=== PATIENT | female | born 1985 | race Caucasian/White ===

== ENCOUNTER 2019-03-30 16:12 | Outpatient (REF) | payer MEDICAID, SELFPAY ==
[2019-03-30 19:35] LABS: ALT 14 U/L (14-59); AST 17 U/L (15-37); Albumin 3.9 g/dL (3.4-5.0); Alkaline Phosphatase 63 U/L (46-116); Amylase 51 U/L (25-115); Anion Gap 10.3 mmol/L (3-11); BUN 15 mg/dL (7-18); Bilirubin, Total 0.5 mg/dL (0.2-1.0); CO2 24.7 mmol/L (21.0-32.0); CREATININE 0.79 mg/dL (0.55-1.02); Calcium 8.8 mg/dL (8.5-10.1); Chloride 105 mmol/L (98-107); Glucose 95 mg/dL (70-100); Lipase 115 U/L (73-393); Potassium 4.1 mmol/L (3.5-5.1); Sodium 140 mmol/L (136-145); Total Protein 7.1 g/dL (6.4-8.2)
== END 2019-03-30 16:32 ==
LOC: NCHCN 16:12
PROVIDERS: PCP Nurse Practitioner Family; Visit Provider Nurse Practitioner Family
DX: R10.11 Right upper quadrant pain (principal)
CPT/HCPCS: 80053; 83690; 82150

== ENCOUNTER 2019-07-20 20:02 | Outpatient (REF) | payer MEDICAID, SELFPAY ==
[2019-07-20 19:51] LABS: HCG Qual (Serum) Negative
== END 2019-07-20 20:22 ==
LOC: NCHCN 20:02
PROVIDERS: PCP Nurse Practitioner Family; Visit Provider Nurse Practitioner Family
DX: N91.2 Amenorrhea, unspecified (principal)
CPT/HCPCS: 84703

== ENCOUNTER 2019-11-22 17:11 | Outpatient (REF) | payer MEDICAID, SELFPAY ==
--- NOTE | 2019-11-22 16:20 | PAPFT_PTH ---
PATIENT: Joleen Spencer LOC: [facility]#:[id number] AGE/SX: 34/F ROOM: RE11/22/[address]: Lexii Coleman : 1985 BED: DIS: 11/22/2019 SPEC #: [id number] RECD: 11/23/19 12:56 STATUS: STEPH REHeidy #: [id number] KVNG: 11/22/19 16:[address]: Lexii Coleman [facility]PT[facility] Cytology RECD BY: Helen Saavedra ENTERED: 11/23/19 12:56 SP TYPE: PAPFT OTHR DR: Ernestina Montez Tissues: 1 - CX/ENDOCX FOR PAP SMEARS Procedures: PAP THIN PREP/UVM Screening HPV DNA PROBE Comments: [id number]
== END 2019-11-22 17:31 ==
LOC: NCHCN 17:11
PROVIDERS: PCP Nurse Practitioner Family; Visit Provider Nurse Practitioner Family
DX: Z12.4 Encounter for screening for malignant neoplasm of cervix (principal); Z11.51 Encounter for screening for human papillomavirus (HPV)
CPT/HCPCS: 88142; 87624

== ENCOUNTER 2020-10-28 14:55 | Outpatient (REF) | payer MEDICAID, SELFPAY ==
--- OUTSIDE RECORDS SUMMARY | 2020-10-28 15:05 | XMS_ITS ---
:1985 Author Care Team Providers Name Role Phone STEF RHODES MD Primary Care Provider [phone] Allergies Code Code System Name Reaction Severity Status Onset NKDA ? Medications Name Status Start Date Stop Date ? ? amoxicillin 500 mg capsule Active ? Not a vailable Take 1 capsule every 8 hours by oral route for 10 days. ferrous sulfate 325 mg (65 mg iron) tablet,delayed release Compl eted 12/05/2012 02/03/[address]: TID fluticasone propionate 50 Active ? Not av ailable mcg/actuation nasal spray,suspension methylprednisolone 4 mg tablets in Active ? Not available a dose pack oxycodone 5 mg tablet Completed 08/15/2015 07/17/2016 1 (one) Tablet: every 4 hours as needed Percocet 5 mg-325 mg tablet Completed 07/22/2016 05/0 05/2016 1 (one) - 2 (two) Tablet Tablet: every 6 hours as needed for pa in Pulmicort 0.5 mg/2 mL suspension Active ? Not available for nebulization Vitamin B-12 500 mcg tablet Completed 07/30/2010 06/0 11/2010 1 (one) Tablet: daily Notes: Pt is not on any medicati ons 05/25/2019 Problems Name Status Onset Date Source ? Insomnia Active ? History Umbilical Hernia Active ? History Pain in Limb Active ? History Gynecologic Examination Active ? History Pain of Right Shoulder Joint Active ? His tory Procedure by Method Active ? History Procedures Date Name Performed by ? ? Orthopedic Surgery Information not avai lable Notes: Sugeries to right elbow x5 (from [id number]) Right shoulder surgery 11/22/2009 Results Lab Results Date Name Specimen Result Interpretation Description Value Range Status Address ? 04/19/2018 CBC W/ Auto BLD Low Wbc 3.6 10*3/uL 5.0-10.0 F inal [place] Diff 10*3/uL [facility] ab (Internal) : [address], [place] [address] ? ? BLD Low Rbc 3.79 4.10-5.30 Final [place] 10*6/uL 10*6/uL [facility] (Internal) : [address] ? ? BLD - Hgb 13.2 g/dL 12.0-16.0 Final Nort h g/dL [facility] (Internal) : [address] ? ? BLD - Hct 38.7 % 37.0-47.0 Final North % [facility] (Internal) : [address] ? ? BLD High Mcv 102.1 fL 80.0-96.0 Final [place] fL [facility] (Internal) : [address] ? ? BLD High Mch 34.8 pg 26.0-32.0 Final [place] pg [facility] (Internal) : [address] ? ? BLD - Mchc 34.1 g/dL 31.0-35.0 Final Nort h g/dL [facility] (Internal) : [address] ? ? BLD - Rdw 11.7 % 11.5-14.5 Final North % [facility] (Internal) : [address] ? ? BLD - Plt 223 10*3/uL 130-450 Final Nort h 10*3/uL [facility] (Internal) : [address] 04/19/2018 CMP, Serum S High g/r 111 mg/dL 74-106 Final North or Plasma mg/dL [facility] (Internal) : [address] ? ? S - Bun 7 mg/dL 7-17 Final North mg/dL [facility] (Internal) : [address] ? ? S - Crea 0.70 mg/dL 0.52-1.04 Final Nor th mg/dL [facility] (Internal) : [address] ? ? S - Ca 8.9 mg/dL 8.4-10.2 Final North mg/dL [facility] (Internal) : [address] ? ? S - Na 139 mmol/L 137-145 Final [place] mmol/L [facility] (Internal) : [address] ? ? S - K 3.8 mmol/L 3.5-5.1 Final [place] mmol/L [facility] (Internal) : [address] ? ? S - Cl 104 mmol/L 98-107 Final [place] mmol/L [facility] (Internal) : [address] ? ? S - Tco2 23.0 mmol/L 22.0-30.0 Final No rth mmol/L [facility] (Internal) : [address] ? ? S - Tp 7.0 g/dL 6.3-8.2 Final [place] g/dL [facility] (Internal) : [address] ? ? S - Alb 4.1 g/dL 3.5-5.0 Final [place] g/dL [facility] (Internal) : [address] ? ? S - Tbil 0.7 mg/dL 0.2-1.3 Final [place] mg/dL [facility] (Internal) : [address] ? ? S - Alp 72 U/L 50-136 Final North U/L [facility] ab (Internal) : [address] [place] ? ? S - Alt (Sgpt) 13 U/L 9-52 U/L Final [facility] ab (Internal) : [address] ? ? S High Ast (Sgot) 39 U/L 14-36 U/L Final No rth [facility] (Internal) : [address] [place] 04/19/2018 Differentia BLD - Polys 61 % 40-75 % Final [facility], Manual, Countr y Blood Hospital L ab (Internal) : [address] ? ? BLD - Bands 0 % 0-5 % Final [facility] ab (Internal) : [address] ? ? BLD - Lymphs 25 % 20-50 % Final [facility] ab (Internal) : [address] ? ? BLD High [place] 12 % 2-10 % Final [facility] ab (Internal) : [address] ? ? BLD - Eos 0 % 0-6 % Final [facility] (Internal) : [address] ? ? BLD High Baso 2 % 0-1 % Final [facility] ab (Internal) : [address] ? ? BLD - Atyp Lymph 0 % ? Final [facility] ab (Internal) : [address] ? ? BLD - Plts, Est. adequate adequate Final N [facility] ab (Internal) : [address] ? ? BLD ABNORMAL RBC abnormal normal Final [facility] ab (Internal) : [address] ? ? BLD - Macro occasional ? Final [facility] ab (Internal) : [address] 04/19/2018 Neutrophil BLD - Anc-manual 2.17 ? [facility] Count, 10*3/uL [facility] Lab (Anc), (Internal) : Blood [address] 04/19/2018 Troponin I, S - Trop <0.06 NG/mL 0.00-0.06 [facility] Serum or NG/mL [facility] Plasma [facility] L ab (Internal) : [address] Past Encounters 12/28/2019 Giovanny Jewell MD: [address] [place] [address], [address], [place] [address], Ph. Social History Tobacco Smoking Status Heavy Tobacco Smoker (1 PPD) Vaccine List Vaccine Type DTaP Hep B, adolescent or pediatric influenza, injectable, quadrivalent 04/02/2020?0.5 mL influenza, seasonal, injectable, preserv ative free 03/24/2010?0.5 mL 02/10/2012?0.5 mL IPV MMR Td (adult), adsorbed 10/29/1997 Tdap 10/10/2010?0.5 mL Plan of Care Reminders Provider Appointments None ? ? recorded. Lab None ? ? recorded. Referral None ? ? recorded. Procedures None ? ? recorded. Surgeries None ? ? recorded. Imaging None ? ? recorded. Vitals 12/28/2019 02:15PM Consult 30 Height Weight BMI Blood Pressure 160.02 cm 58.06 kg 22.7 kg/m2 132/82 mm[Hg] 09/21/2016 Height Weight Blood Pressure 161.93 cm 60.6 kg 112/76 mm[Hg] 08/03/2016 Weight 59.87 kg 07/16/2016 Weight 59.87 kg 11/01/2015 Height Weight Blood Pressure 160.02 cm 56.7 kg 120/60 mm[Hg] 09/24/2015 Height Weight Blood Pressure 160.02 cm 56.7 kg 110/60 mm[Hg] 06/14/2015 Height Weight Blood Pressure 160.02 cm 56.7 kg 110/70 mm[Hg] 04/26/2015 Height Weight Blood Pressure 160.02 cm 56.7 kg 118/72 mm[Hg] 10/11/2014 Height Weight Blood Pressure 161.29 cm 53.98 kg 102/60 mm[Hg] 06/07/2014 Height Weight Blood Pressure 161.29 cm 55.79 kg 100/64 mm[Hg] 10/03/2013 Height Weight Blood Pressure 161.29 cm 56.15 kg 120/70 mm[Hg] 09/27/2012 Height Weight Blood Pressure 160.66 cm 61.37 kg 110/74 mm[Hg] 01/05/2012 Height Weight Blood Pressure 160.66 cm 49.85 kg 124/72 mm[Hg] 12/01/2011 Height Weight Blood Pressure 160.66 cm 50.26 kg 104/74 mm[Hg] 11/21/2010 Height Weight Blood Pressure 160.02 cm 61.01 kg 116/76 mm[Hg] 02/05/2010 Height Weight Blood Pressure 160.02 cm 52.16 kg 96/56 mm[Hg]
[2020-10-28 18:44] LABS: TSH (W/Ref FT4) 1.29 uIU/mL (0.36-3.74)
== END 2020-10-28 14:56 | disposition home or self-care (01) ==
LOC: NCHCN 14:55
PROVIDERS: PCP Nurse Practitioner Family; Visit Provider Nurse Practitioner Family
DX: R00.2 Palpitations (principal)
CPT/HCPCS: 84443

== ENCOUNTER 2021-04-03 18:02 | Emergency (ER) | payer MEDICAID, SELFPAY ==
[2021-04-03 18:41] VITALS: BP 140/87; PULSE 80; RESP 18; O2SAT 98
--- NOTE | 2021-04-03 19:15 | DI.RAD_ITS ---
Exam(s) XR HAND LT COMPLETE EXAM: XR HAND LT COMPLETE CLINICAL HISTORY: dog bite L hand, r/o foreign body, osteo TECHNIQUE: COMPARISON: No exams were available for comparison FINDINGS: Three views were obtained. There is no evidence of acute fracture or dislocation. IMPRESSION: RADIATION DOSE DELIVERED: Total DLP
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
[2021-04-03] MEDS: Sulfameth/Trimeth DS TAB 1 TAB PO (19:23)
[2021-04-03 19:35] LABS: Abs Immature Grans 0.02 10^3/uL (0.0-0.06); Absolute Basophil Count 0.04 10^3/uL (0.0-0.2); Absolute Eosinophil Count 0.16 10^3/uL (0.0-0.7); Absolute Lymphocyte Count 2.15 10^3/uL (1.2-3.4); Absolute Monocyte Count 0.63 10^3/uL (0.1-0.8); Absolute Neutrophil Count 4.21 10^3/uL (1.2-6.7); Basophils % 0.6; Eosinophils % 2.2; HCT 37.7 % (36.0-46.0); HGB 12.7 g/dL (11.2-15.7); Immature Grans % 0.3; Lymphocytes % 29.8; MCH 35.1 pg (27.0-33.0); MCHC 33.7 % (32.0-36.0); MCV 104.1 fL (80-95); MPV 10.3 fL (8.0-11.0); Monocytes % 8.7; Neutrophils % 58.4; Nucleated RBC 0 %; Platelet Count 297 10^3/uL (130-400); RBC 3.62 10^6/uL (3.93-5.22); RDW 11.2 % (11.7-14.6); RDW-SD 43.5 fL; WBC 7.21 10^3/uL (4.4-10.8)
[2021-04-03 19:36] LABS: ESR 2 mm/hr (0-20)
[2021-04-03 19:52] LABS: ALT 13 U/L (14-59); AST 25 U/L (15-37); Albumin 4.1 g/dL (3.4-5.0); Alkaline Phosphatase 69 U/L (46-116); Anion Gap 7.1 mmol/L (3-11); BUN 8 mg/dL (7-18); Bilirubin, Total 0.8 mg/dL (0.2-1.0); CO2 27.9 mmol/L (21.0-32.0); CREATININE 0.9 mg/dL (0.55-1.02); Calcium 8.7 mg/dL (8.5-10.1); Chloride 105 mmol/L (98-107); Glucose 100 mg/dL (74-106); Potassium 4.3 mmol/L (3.5-5.1); Sodium 140 mmol/L (136-145); Total Protein 7.7 g/dL (6.4-8.2)
[2021-04-03 19:53] LABS: C-Reactive Protein < 0.05 mg/dL (0.0-0.3)
--- NOTE | 2021-04-03 20:04 | DI.VRAD_ITS ---
PROCEDURE INFORMATION: Exam: XR Left Hand Exam date and time: 04/03/2021 7:28 PM Age: 35 years old Clinical indication: Other: Dog bite TECHNIQUE: Imaging protocol: XR Left hand. Views: 3 or more views. COMPARISON: No relevant prior studies available. FINDINGS: Bones/joints: No evidence of fracture. Negative for dislocation. Negative for bony erosion or destructive change. Soft tissues: Negative for soft tissue air. No foreign bodies observed. IMPRESSION: No acute osseous abnormality. Dictated and Authenticated by: Avery iL MD. Ordering:SOFIE Leon MD
[2021-04-03] MEDS: Normal Saline 1,000 ML 1000 ML IV (20:05)
[2021-04-03] MEDS: Ketorolac 30 MG/ML VIAL IVP (20:10)
[2021-04-03] MEDS: CLINDAMYCIN 600 MG/50 ML BAG 100 MG IVPB (20:15)
[2021-04-03] MEDS: Clindamycin 150 MG CAP, 12 CAPS/BTL 450 MG PO (20:40)
[2021-04-03] MEDS: Sulfameth/Trimeth DS, 2 TABS/BTL 1 TAB PO (20:41)
[2021-04-03 20:50] VITALS: BP 136/72; PULSE 74; RESP 18; TEMP 36.3; O2SAT 99
== END 2021-04-03 20:50 | disposition home or self-care (01) ==
PROVIDERS: Emergency Provider Physician Assistant; PCP Nurse Practitioner Family
DX: S61.452A Open bite of left hand, initial encounter (principal); L03.114 Cellulitis of left upper limb; W54.0XXA Bitten by dog, initial encounter
CPT/HCPCS: 36415; 80053; 85652; 96361; 96365; 96375; 99284; 73130; 85025; 86140; J1885

== ENCOUNTER 2021-05-01 01:42 | Outpatient (CLI) | payer MEDICAID, SELFPAY ==
--- NOTE | 2021-05-01 | DI.MRI_ITS ---
Exam(s) MR UPPER EXTREMITY LT WO EXAM: MR UPPER EXTREMITY LT WO CLINICAL HISTORY: PUNCTURE WOUND W/O FOREIGN BODY OF LEFT HAND S61.432A TECHNIQUE: Multiplanar multisequence MRI was performed. COMPARISON: Left hand x-rays 04/03/2021 reviewed FINDINGS: SKIN-SUBCUTANEOUS TISSUES: There is some mild dorsal soft tissue edema. There is no defined fluid co llection. No abscess. MARROW:Is no evidence of fracture, bone contusion nor confluent hypointense signal on noncontrast T1 images to suggest the presence of osteomyelitis. There are no osseous lesions nor erosions evident. ARTICULATIONS: No joint effusions. No evidence of para-articular ganglion. MUSCLES/TENDONS: There is no evidence of abnormal signal nor mass in the visualized muscles.NO EVIDEN CE OF OBVIOUS TENDON TEAR NOR TENOSYNOVITIS. EXTRAMUSCULAR SOFT TISSUES: No abnormal signal, mass, or fluid collection. OTHER: carpal tunnel contents appear unremarkable. IMPRESSION: 1. There is some soft tissue swelling but no evidence of abscess nor tenosynovitis. 2. No fractures and no evidence of osteomyelitis. 3. No artifact suggest foreign body. DATA REPOSITORY:
== END 2021-05-01 02:02 ==
PROVIDERS: PCP Nurse Practitioner Family; Visit Provider Physician Assistant Surgical
DX: S61.432A Puncture wound without foreign body of left hand, initial encounter (principal); X58.XXXA Exposure to other specified factors, initial encounter
CPT/HCPCS: 73218

== ENCOUNTER 2023-11-17 11:49 | Outpatient (REF) | payer MEDICAID, SELFPAY ==
[2023-11-17 20:56] LABS: TSH (W/Ref FT4) 1.67 uIU/mL (0.36-3.74)
== END 2023-11-17 11:50 | disposition home or self-care (01) ==
LOC: NCHCN 11:49
PROVIDERS: PCP Nurse Practitioner Family; Visit Provider Nurse Practitioner Family
DX: R94.6 Abnormal results of thyroid function studies (principal)
CPT/HCPCS: 84443